=== PATIENT | male | born 1995 | race Caucasian/White ===

== ENCOUNTER 2019-10-08 15:43 | Emergency (ER) | payer OTHER ==
[~2019-10-08] VITALS: Ht 175.3 cm; Wt 88.5 kg
[2019-10-08] MEDS ORDERED: PENICILLIN V P500 MG PO (16:05)
== END 2019-10-08 16:13 | disposition home or self-care (01) ==
LOC: ED 15:43
DX: K08.89 Other specified disorders of teeth and supporting structures (principal)
CPT/HCPCS: 99282